=== PATIENT | male | born 1965 | race Caucasian/White ===

== ENCOUNTER 2020-07-09 21:50 | Emergency (ER) | payer MEDICARE ==
[~2020-07-09 21:50] MED LIST: ALPRAZOLAM0.5 MG PO; ATIVAN1 MG PO; IBU-200200 MG PO; KEPPRA 500 MG500 MG PO; OMNICEF 300 MG300 MG PO; REMERON30 MG PO; ZOLOFT100 MG PO
== END 2020-07-09 23:57 | disposition home or self-care (01) ==
LOC: ER1 21:50
DX: S61.212A Laceration without foreign body of right middle finger without damage to nail, initial encounter (principal); S16.1XXA Strain of muscle, fascia and tendon at neck level, initial encounter; S70.02XA Contusion of left hip, initial encounter; S09.90XA Unspecified injury of head, initial encounter; W17.89XA Other fall from one level to another, initial encounter
CPT/HCPCS: 12001; 72040; 72128; 72131; 73502; 99284

== ENCOUNTER 2020-12-03 23:04 | Emergency (ER) | payer MEDICARE | END 2020-12-04 03:00 | LOC: ER1 23:04 | PROVIDERS: Physician Assistant | DX: G40.909 Epilepsy, unspecified, not intractable, without status epilepticus (principal); F15.10 Other stimulant abuse, uncomplicated; Z79.899 Other long term (current) drug therapy; F17.200 Nicotine dependence, unspecified, uncomplicated | CPT/HCPCS: 80307; 93005; 96374; 99284; J1953; J2060 ==

== ENCOUNTER → 2021-09-13 | Day surgery (SDC) | payer MEDICARE ==
[~2021-09-13] MED LIST changes: +CYCLOBENZAPRINE10 MG PO; +DICLOFENAC SODI50 MG PO; +DULOXETINE HCL60 MG PO; +LEVETIRACETAM1000 MG PO; +MYCOSTATIN OINT15 GM TOP; +NASACORT16.9 ML; +OMEPRAZOLE20 MG PO; +ROBAXIN 750 MG750 MG GT; +TRAZODONE HCL150 MG PO
== END | disposition home or self-care (01) ==
LOC: OR 06:57
PROVIDERS: Internal Medicine Gastroenterology
PROC: 0DBN8ZZ Excision of Sigmoid Colon, Via Natural or Artificial Opening Endoscopic (ICD-10-PCS; principal; 2021-09-13 08:10)
DX: Z12.11 Encounter for screening for malignant neoplasm of colon (principal); K63.5 Polyp of colon; K64.1 Second degree hemorrhoids; G90.50 Complex regional pain syndrome I, unspecified; M19.90 Unspecified osteoarthritis, unspecified site; M54.9 Dorsalgia, unspecified; F17.200 Nicotine dependence, unspecified, uncomplicated; Z79.899 Other long term (current) drug therapy
CPT/HCPCS: J2704; J7040